=== PATIENT | female | born 1990 | race Caucasian/White ===

== ENCOUNTER → 2018-06-01 | Outpatient (CLI) | payer BC ==
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
== END ==
LOC: RAD FS 09:00
PROVIDERS: ATTEND Nurse Practitioner
DX: M25.562 Pain in left knee (principal); M79.89 Other specified soft tissue disorders
CPT/HCPCS: 73562

== ENCOUNTER → 2019-10-06 | Outpatient (CLI) | payer BC ==
[2019-10-06 10:29] LABS: BASOPHILS % (AUTO) 1 % (0-10); EOSINOPHILS % (AUTO) 2 % (0-10); HEMATOCRIT 43 % (35-52); HEMOGLOBIN 14.3 G/DL (11.5-16.0); MEAN CORPUSCULAR HEMOGLOBIN 29 PG (25-34); MEAN CORPUSCULAR HGB CONC 33 G/DL (32-36); MEAN CORPUSCULAR VOLUME 88 FL (80-99); MEAN PLATELET VOLUME 9.6 FL (7.4-10.4); MONOCYTES % (AUTO) 6 % (0-12); NEUTROPHILS % (AUTO) 57 % (42-75); PLATELET COUNT 185 10^3/uL (130-400); RED CELL DISTRIBUTION WIDTH 12.9 % (10.0-14.5); WHITE BLOOD COUNT 5.2 10^3/uL (4.3-11.0)
[2019-10-06 10:30] LABS: EOSINOPHILS # (AUTO) 0.1 10^3/uL (0.0-0.3); LYMPHOCYTES # (AUTO) 1.8 X 10^3 (1.0-4.0); LYMPHOCYTES % (AUTO) 34 % (12-44); MONOCYTES # (AUTO) 0.3 X 10^3 (0.0-1.0); NEUTROPHILS # (AUTO) 2.9 X 10^3 (1.8-7.8)
[2019-10-06 15:32] LABS: ALANINE AMINOTRANSFERASE 26 U/L (0-55); ALBUMIN 4.5 GM/DL (3.2-4.5); ALKALINE PHOSPHATASE 53 U/L (40-136); BILIRUBIN,TOTAL 1.2 MG/DL (0.1-1.0); BUN/CREATININE RATIO 20; CALCIUM 9.2 MG/DL (8.5-10.1); CARBON DIOXIDE 24 MMOL/L (21-32); CHLORIDE 105 MMOL/L (98-107); CREATININE SERUM 0.76 MG/DL (0.60-1.30); GFR ESTIMATED > 60; GLUCOSE 95 MG/DL (70-105); POTASSIUM 4.1 MMOL/L (3.6-5.0); SODIUM 137 MMOL/L (135-145); TOTAL PROTEIN 7.3 GM/DL (6.4-8.2)
== END ==
LOC: LAB FS 09:34
PROVIDERS: ATTEND Family Medicine
DX: Z00.00 Encounter for general adult medical examination without abnormal findings (principal)
CPT/HCPCS: 36415; 80053; 84443; 85025

== ENCOUNTER → 2020-04-13 | Outpatient (CLI) | payer BC ==
[2020-04-13 11:15] LABS: ALANINE AMINOTRANSFERASE 19 U/L (0-55); ALBUMIN 4.4 GM/DL (3.2-4.5); ALKALINE PHOSPHATASE 53 U/L (40-136); BUN/CREATININE RATIO 21; CALCIUM 9.3 MG/DL (8.5-10.1); CARBON DIOXIDE 26 MMOL/L (21-32); CHLORIDE 105 MMOL/L (98-107); GFR ESTIMATED > 60; GLUCOSE 99 MG/DL (70-105); POTASSIUM 4.1 MMOL/L (3.6-5.0); SODIUM 141 MMOL/L (135-145); TOTAL PROTEIN 7.2 GM/DL (6.4-8.2)
[2020-04-13 15:12] LABS: CHOLESTEROL 159 MG/DL (< 200); HDL CHOLESTEROL 40 MG/DL (40-60); TRIGLYCERIDES 80 MG/DL (<150); VLDL CHOLESTEROL 16 MG/DL (5-40)
== END ==
LOC: LAB FS 09:50
PROVIDERS: ATTEND Family Medicine
DX: Z00.00 Encounter for general adult medical examination without abnormal findings (principal)
CPT/HCPCS: 36415; 80053; 80061; 84443

== ENCOUNTER → 2021-01-07 | Outpatient (CLI) | payer BC | LOC: LAB FS 14:23 | PROVIDERS: ATTEND Family Medicine | DX: R10.9 Unspecified abdominal pain (principal) | CPT/HCPCS: 36415; 86003 ==

== ENCOUNTER → 2021-07-03 | Outpatient (CLI) | payer BC | LOC: LABNPT 14:19 | PROVIDERS: ATTEND Registered Nurse Emergency | DX: H60.93 Unspecified otitis externa, bilateral (principal); J30.2 Other seasonal allergic rhinitis | CPT/HCPCS: 87070; 87077; 87186 ==

== ENCOUNTER 2021-11-06 06:14 | Outpatient (CLI) | payer BC ==
[~2021-11-06] VITALS: Ht 167.6 cm; Wt 106.6 kg
[2021-11-06] MEDS ORDERED: ESCI-2 PO (11:00)
== END 2021-11-06 11:01 | disposition home or self-care (01) ==
LOC: PREOP 06:14
PROVIDERS: ATTEND Surgery
DX: Z01.818 Encounter for other preprocedural examination (principal)

== ENCOUNTER 2021-11-18 06:58 | Day surgery (SDC) | payer BC ==
[~2021-11-18] VITALS: Ht 167.6 cm; Wt 106.6 kg
[~2021-11-18 06:58] MED LIST: ESCI-2 PO
[2021-11-18] MEDS ORDERED: LACTATED RINGERS 1,000 ML IV STA (07:13)
[2021-11-18 07:22] VITALS: BP 131/82
--- NOTE | 2021-11-18 07:38 | Progress Note-Pre Operative ---
Pre-Operative Progress Note Date of Available H&P: Oct 28, 2021 Date H&P Reviewed: Nov 18, 2021 Time H&P Reviewed: 07:30 History & Physical: H&P Reviewed, Patient Examed, No changes noted Pre-Operative Diagnosis: anal fissure, blood per rectum OTF CHOE DO Nov 18, 2021 07:38
[2021-11-18] MEDS ORDERED: PROPOFOL INJECTION 50 ML IV ONE (07:50)
--- NOTE | 2021-11-18 08:14 | Discharge Inst-Simple/Standard ---
Discharge Inst-Standard Patient Instructions/Follow Up Plan of Care/Instructions/FU: 2-3 weeks Marlon Activity as Tolerated: Yes Discharge Diet: Regular Diet (high fiber) OTF CHOE DO Nov 18, 2021 08:14
[2021-11-18 08:15] VITALS: BP 103/63
[2021-11-18 08:20] VITALS: BP 115/73
[2021-11-18 08:25] VITALS: BP 115/73
[2021-11-18 08:45] VITALS: BP 115/73
--- NOTE | 2021-11-18 11:34 | Anesthesia-General Post-Op ---
MAC Patient Condition Mental Status/LOC: Same as Preop Cardiovascular: Satisfactory Nausea/Vomiting: Absent Respiratory: Satisfactory Pain: Controlled Complications: Absent Post Op Complications Complications None Follow Up Care/Instructions Patient Instructions None needed. Anesthesiology Discharge Order Discharge Order Patient is doing well, no complaints, stable vital signs, no apparent adverse anesthesia problems. No complications reported per nursing. PAT DANIELS CRNA Nov 18, 2021 11:34
--- NOTE | 2021-11-18 12:55 | OPERATIVE REPORT ---
DATE OF SERVICE: 11/18/2021 PREOPERATIVE DIAGNOSES: Posterior anal fissure, blood per rectum. POSTOPERATIVE DIAGNOSIS: Superficial posterior anal fissure. PROCEDURE: Colonoscopy. SURGEON: Otf Mason DO ANESTHESIA: Per FEATURES EDITOR. ESTIMATED BLOOD LOSS: None. COMPLICATIONS: None. INDICATIONS: The patient is a 31-year-old female with rectal bleeding and history of anal fissure. She understands risks and benefits of procedure and wishes to proceed. Consent was signed in the chart. DESCRIPTION OF PROCEDURE: The patient was taken to endoscopy suite, placed in left lateral recumbent position. Timeout was performed. Digital rectal exam was performed noting a very small superficial posterior anal fissure. No active bleeding. No polyps, masses or ulcerations. Scope was inserted in the rectum and advanced all the way to cecum with minimal difficulty. Prep was adequate. Scope was slowly retracted back. No polyps, masses or ulcerations noted within the cecum, ascending, transverse, descending and sigmoid colon. Once in the rectum, scope was retroflexed noting no other pathology. Scope was returned to its normal position, slowly withdrawn until completely removed. The patient tolerated the procedure well without any complications, taken to recovery room in stable condition. RECOMMENDATIONS: The patient will continue to try to keep stools soft. We would recommend high fiber diet and stool softener as needed. We will have her reevaluate in 2 to 3 weeks. We will need repeat colonoscopy on as needed basis or per screening guidelines, which would be age 47. Any changes before that will need to be seen at that time. Job ID: [id number] DocumentID: [id number] Dictated Date: 11/18/2021 09:08:20 Explosion Welder Date: 11/18/2021 12:55:28 Dictated By: OTF MASON DO
== END 2021-11-18 08:49 | disposition home or self-care (01) ==
LOC: ENDO 06:58
PROVIDERS: ATTEND Surgery
DX: K60.2 Anal fissure, unspecified (principal); K62.5 Hemorrhage of anus and rectum
CPT/HCPCS: 84703